=== PATIENT | female | born 1975 | race African-American/Black ===

== ENCOUNTER 2017-03-20 08:27 | Emergency (ER) | payer OTHER ==
[~2017-03-20] VITALS: Ht 154.9 cm; Wt 76.2 kg
[~2017-03-20 08:27] MED LIST: FLAGYL500 MG PO; FLEXERIL; NORCO 5-325 TA1 EACH PO; [UNRECOGNIZED DRUG - OTHER]
[2017-03-20 08:29] VITALS: BP 133/75
[2017-03-20] MEDS ORDERED: NAPROSYN500 MG PO ×2 (09:11→09:36)
[2017-03-20] MEDS ORDERED: PREDNISONE 20 M20 MG PO ×2 (09:11→09:36)
[2017-03-20] MEDS ORDERED: TRAMADOL 50 MG50 MG PO ×2 (09:11→09:36)
== END 2017-03-20 09:41 | disposition home or self-care (01) ==
LOC: ER 08:27
DX: M54.41 Lumbago with sciatica, right side (principal); F17.210 Nicotine dependence, cigarettes, uncomplicated; F10.99 Alcohol use, unspecified with unspecified alcohol-induced disorder; Z86.19 Personal history of other infectious and parasitic diseases; Z88.1 Allergy status to other antibiotic agents